=== PATIENT | female | born 1960 | race Caucasian/White ===

== ENCOUNTER 2023-10-28 21:34 | Inpatient (IN) | payer OTHER ==
[~2023-10-28] VITALS: Ht 160 cm; Wt 104.7 kg
[2023-10-28 22:02] VITALS: PULSE 72; RESP 13; O2SAT 92
[2023-10-28 22:14] LABS: Basophils # (auto) 0 10 ^3/uL (0-0.2); Eosinophils # (auto) 0.1 10 ^3/uL (0-0.8); Eosinophils % (auto) 2.5 % (0.0-7.0); Hematocrit 39.3 % (36.0-46.0); Hemoglobin 12.9 g/dL (12.2-16.2); Lymphocytes # (auto) 2.3 10 ^3/uL (0.4-5.4); Lymphocytes % (auto) 51.4 % (10.0-50.0); Mean Corpuscular Hemoglobin 30.1 pg (28.0-32.0); Mean Corpuscular Hgb Conc. 32.8 g/dL (32.0-36.0); Mean Corpuscular Volume 91.6 fL (80.0-100.0); Monocytes # (auto) 0.4 10 ^3/uL (0-1.3); Monocytes % (auto) 7.9 % (0.0-12.0); Neutrophils # (auto) 1.7 10 ^3/uL (1.6-8.6); Neutrophils % (auto) 37.2 % (37.0-80.0); Nucleated Red Blood Cells % 0.1 %; Red Blood Cells 4.29 10^6/uL (4.0-5.20); Red Cell Distribution Width 13.7 % (11.8-14.3); White Blood Cell 4.4 10^3/uL (4.4-10.8)
[2023-10-28] MEDS: NITROGLYCERIN 2% OINT 1GM PKG TD ONE (22:14)
[2023-10-28] MEDS: ASPirin 325 MG TAB PO ONE (22:14)
[2023-10-28] MEDS: VERAPAMIL 2.5MG/ML INJ 2ML VIAL IV ONE (22:18)
[2023-10-28] MEDS: fentaNYL CITRATE 100 MCG/2 ML VL ONE (22:18)
[2023-10-28] MEDS: LIDOCAINE 2%HCL (LOCAL ANESTH.) INJ 20ML MDV ONE (22:18)
[2023-10-28] MEDS: HEPARIN SODIUM (PORCINE) 5000 UNITS/ML 1ML VIAL ONE (22:18)
[2023-10-28] MEDS: MIDAZOLAM HCL 2MG/2ML 2ml VIAL (1mg/ml) ONE (22:18)
[2023-10-28] MEDS: IODIXANOL 320MG/ML 100ML BTL IV ONE (22:18)
[2023-10-28] MEDS: SODIUM CHL 0.9% 0 ML ONE (22:18)
[2023-10-28] MEDS: ANGIOMAX 250 MG VIAL IV ONE (22:18)
[2023-10-28 22:27] LABS: Alanine Aminotransferase 30 U/L (7-40); Albumin 4.5 g/dL (3.2-4.8); Alkaline Phosphatase 118 U/L (46-116); Anion Gap 7 (5-15); Aspartate Aminotransferase 24 U/L (13-40); Blood Urea Nitrogen 13 mg/dL (9-23); Calcium 9.9 mg/dL (8.7-10.4); Carbon Dioxide 23 mmol/L (20-30); Chloride 108 mmol/L (98-107); Glucose 127 mg/dL (74-106); Magnesium 2.1 mg/dL (1.6-2.6); Potassium 3.7 mmol/L (3.5-5.1); Sodium 138 mmol/L (136-145)
[2023-10-28 22:28] LABS: Bilirubin, Total 0.4 mg/dL (0.2-1.0); Total Protein 7.4 g/dL (5.7-8.2)
[2023-10-28 22:42] LABS: INR 0.96 (0.9-1.15); Partial Thromboplastin Time 26.2 SEC (24.5-34.5); Prothrombin Time 10.2 sec (9.3-11.8)
[2023-10-28 23:02] VITALS: BP 114/61; PULSE 61; TEMP 98.2; O2SAT 98
[2023-10-28] MEDS: ATROPINE SULF 1 MG/10ml SYR ONE (23:11)
[2023-10-28 23:18] VITALS: BP 103/65; PULSE 62; O2SAT 96
[2023-10-28 23:32] VITALS: BP 103/62; PULSE 67; O2SAT 92
[2023-10-28 23:45] VITALS: BP 105/69; PULSE 64; O2SAT 92
[2023-10-28] MEDS ORDERED: MORPHINE SULFATE INJ 2 MG/ml SYRG IV PRN (23:45)
[2023-10-28] MEDS ORDERED: NITROGLYCERIN 0.4 MG SL TAB SL PRN (23:45)
[2023-10-28 23:55] VITALS: BP 115/60; PULSE 58; RESP 16; TEMP 98; O2SAT 97
[2023-10-29] VITALS (9 sets, daily range): BP systolic 100–144; BP diastolic 52–70; PULSE 57–69; RESP 16–20; TEMP 97.9–98.2; O2SAT 95–98
[2023-10-29] MEDS: MORPHINE SULFATE INJ 2 MG/ml SYRG IV ONE (00:45)
[2023-10-29] MEDS: HEPARIN SODIUM (PORCINE) 5000 UNITS/ML 1ML VIAL IV ONE (00:45)
[2023-10-29] MEDS: ACETAMINOPHEN 325 MG TAB PO PRN (05:56)
[2023-10-29 09:16] LABS: Triglycerides 104 mg/dL (< 150)
[2023-10-29 09:17] LABS: LDL Cholesterol 112 mg/dL (< 100)
[2023-10-29 09:18] LABS: Cholesterol 198 mg/dL (< 200); HDL Cholesterol 72 mg/dL (40-59)
[2023-10-29 09:50] LABS: Amphetamine Screen, Urine Neg (NEGATIVE); Barbiturate Scree,Urine Neg (NEGATIVE); Benzodiazephine Screen, Urine Pos (NEGATIVE); Cannabinoid Screen, Urine Neg (NEGATIVE); Cocaine Screen, Urine Neg (NEGATIVE); Opiate Scree,Urine Neg (NEGATIVE); Phencyclidine Screen, Urine Neg (NEGATIVE)
[2023-10-29] MEDS: CLOPIDOGREL BISULFATE 75 MG TAB PO ONE (14:04)
[2023-10-29] MEDS: ATORVASTATIN 20 MG TAB PO SCH (21:20)
[2023-10-30 01:00] VITALS: BP 104/48; PULSE 61; RESP 17; TEMP 97.7; O2SAT 98
[2023-10-30 05:00] VITALS: BP 111/49; PULSE 63; RESP 18; TEMP 97.4; O2SAT 96
[2023-10-30 08:00] VITALS: PULSE 67
[2023-10-30 09:00] VITALS: BP 104/48; PULSE 65; RESP 20; TEMP 98.4; O2SAT 96
[2023-10-30] MEDS: ASPirin 81 mg TAB PO SCH (09:04)
[2023-10-30] MEDS ORDERED: ASPI81CH74 PO (10:32)
[2023-10-30] MEDS ORDERED: ATOR-507 PO (10:32)
== END 2023-10-30 12:20 | disposition home or self-care (01) | DRG 281 ==
LOC: ER 21:34 → TELE 23:48 → TELE-WESTW 23:55
PROVIDERS: ADMIT Student in an Organized Health Care Education/Training Program; ATTEND Family Medicine
PROC: B211YZZ Fluoroscopy of Multiple Coronary Arteries using Other Contrast (ICD-10-PCS; principal; 2023-10-28)
PROC: B215YZZ Fluoroscopy of Left Heart using Other Contrast (ICD-10-PCS; 2023-10-28)
PROC: 4A023N7 Measurement of Cardiac Sampling and Pressure, Left Heart, Percutaneous Approach (ICD-10-PCS; 2023-10-28)
DX: I21.B Myocardial infarction with coronary microvascular dysfunction (principal); I50.32 Chronic diastolic (congestive) heart failure; Z68.41 Body mass index [BMI] 40.0-44.9, adult; E78.00 Pure hypercholesterolemia, unspecified; F41.9 Anxiety disorder, unspecified; E66.9 Obesity, unspecified; I44.0 Atrioventricular block, first degree; I25.10 Atherosclerotic heart disease of native coronary artery without angina pectoris; Z80.3 Family history of malignant neoplasm of breast; I25.2 Old myocardial infarction; Z98.84 Bariatric surgery status
CPT/HCPCS: 36415; 71045; 80053; 80061; 80307; 83735; 83880; 84484; 85025; 85610; 85730; 86850; 86900; 86901; 93005; 93306; 93458; 99152; G0378; J2250; Q9967